=== PATIENT | male | born 1970 | race American Indian/Alaskan Native ===

== ENCOUNTER 2023-02-28 16:12 | Emergency (ER) | payer OTHER ==
[~2023-02-28] VITALS: Ht 185.4 cm; Wt 102.1 kg
[~2023-02-28 16:12] MED LIST: ALTACE; ASPIRIN; COREG; LASIX; SPIRONOLACTONE
[2023-02-28 16:20] VITALS: BP 145/98
== END 2023-02-28 18:37 | disposition home or self-care (01) ==
LOC: ER 16:12
DX: S61.215A Laceration without foreign body of left ring finger without damage to nail, initial encounter (principal); S61.217A Laceration without foreign body of left little finger without damage to nail, initial encounter; S60.512A Abrasion of left hand, initial encounter; V29.99XA Rider (driver) (passenger) of other motorcycle injured in unspecified traffic accident, initial encounter; Z79.899 Other long term (current) drug therapy
CPT/HCPCS: 12001; 73130; 99284-25; A9270